=== PATIENT | male | born 1990 | race Hispanic/Latino ===

== ENCOUNTER 2021-09-03 18:10 | Emergency (ER) | payer SELFPAY | END 2021-09-03 19:08 | disposition home or self-care (01) | LOC: ERS 18:10 | DX: H60.92 Unspecified otitis externa, left ear (principal); H61.23 Impacted cerumen, bilateral | CPT/HCPCS: 99282 ==

== ENCOUNTER 2021-09-06 04:16 | Emergency (ER) | payer SELFPAY | END 2021-09-06 05:13 | disposition home or self-care (01) | LOC: ERS 04:16 | DX: H60.92 Unspecified otitis externa, left ear (principal) | CPT/HCPCS: 99282 ==